=== PATIENT | male | born 1990 | race Caucasian/White ===

== ENCOUNTER → 2016-04-27 | Outpatient (CLI) | payer OTHER ==
[~2016-04-27] MED LIST: ALBU17IN2 INH; OCEA0.654; VICO5TAB16 PO
--- NOTE | 2016-04-27 08:57 | REP ---
MAXILLOFACIAL CT WITHOUT CONTRAST: HISTORY: Nasal polyp. Sinus mucosal thickening is present. There is almost complete opacification of the ethmoid, maxillary, sphenoid and left frontal sinuses. Minimal mucosal thickening is present in the right frontal sinus. The uncinate processes are not completely seen. This is due to postsurgical change or demineralization secondary to chronic sinusitis. Mucosal thickening involves the ostiomeatal units. The middle and inferior nasal turbinates are partially paradoxical. There is mild deviation of the nasal septum to the left superiorly and to the right inferiorly. A spur is present arising from the right side of the nasal septum. The cribriform plate, medial lopez of the orbits and optic canals are intact. The carotid canals form a segment of the posterolateral lopez of the sphenoid sinus. Soft tissue density is present in the nasal passages and nasopharynx consistent with polyps. IMPRESSION: 1. Sinus mucosal thickening as described above. 2. There is soft tissue density in the nasal passages and nasopharynx consistent with polyps. Signed by Mateusz Clifford MD 04/27/2016 09:37 A
== END ==
LOC: M RAD 07:22
PROVIDERS: ATTEND Physician Assistant Medical
DX: J33.9 Nasal polyp, unspecified (principal)